=== PATIENT | female | born 1960 | race Caucasian/White ===

== ENCOUNTER → 2018-07-21 | Outpatient (CLI) | payer BC, OTHER ==
[~2018-07-21] MED LIST: LIDOCAINE 1% INJ-PF (10 MG/ML) 30 ML SDV ONE
--- NOTE | 2018-07-21 16:17 | WOMENS IMAGING REPORT ---
EXAM DESCRIPTION: U/S BREAST UNILAT LIMITED COMPLETED DATE/TIME: 07/21/2018 2:17 pm REASON FOR STUDY: R92.8 OTHER ABNORMAL AND INCONCLUSIVE FINDINGS ON DIAGNOSTIC IMAGING OF [place] R92.8 OTH ABN AND INCONCLUSIVE FINDINGS ON DX IMAGING OF [place] COMPARISON: Prior mammograms and ultrasound 06/08/2018, 06/14/2018 TECHNIQUE: Real-time and static grayscale imaging performed of the right breast targeted to the area of mammographic concern. Selected color Doppler images recorded. LIMITATIONS: None. FINDINGS: Ultrasound of the right breast demonstrates a 4.5 by 2 mm cyst in the 6 o'clock retroareol ar position. This is well-circumscribed, with good acoustic through transmission. Few internal sept ations. No biopsy of this lesion was performed today. In the right breast retroareolar region at the 12 o'clock position, an 8 x 3 mm cyst is present. MASS: No mass identified. Normal glandular tissue. OTHER: No other significant finding. IMPRESSION: Small breast cysts in the right breast retroareolar region. No biopsy was performed nina randall. BIRAD: 3 Probably benign finding. Initial short-interval follow-up suggested. RECOMMENDATION: RECOMMENDED FOLLOW-UP: Six-month follow-up right breast mammograms and ultrasound. COMMENT: Patient was imaged by both myself as well as the technologist today. The risks benefits an d alternatives to breast biopsy of the 6 o'clock breast cyst were discussed with the patient today. Patient would prefer six-month follow-up imaging to biopsy. BI-RADS 3 [employer] ([employer]) has developed recommendations for screening MRI of the breast s in certain patient populations, to be used in conjunction with mammography. Breast MRI surveillanc e may be appropriate for women with more than 20% lifetime risk of developing breast cancer as deter mined by genetic testing, significant family history of the disease, or history of mantle radiation f or Hodgkins Disease. [employer] Practice Guidelines 2007. TECHNICAL DOCUMENTATION: JOB ID: [id number] [employer]- All Rights Reserved Reading location - IP/workstation name: [email or web address]
== END ==
LOC: WI 12:58 → EDSTATUS 14:20
PROVIDERS: ATTEND Family Medicine
DX: R92.8 Other abnormal and inconclusive findings on diagnostic imaging of breast (principal)
CPT/HCPCS: 76642; J3490